=== PATIENT | female | born 1965 | race African-American/Black ===

== ENCOUNTER 2021-05-11 10:00 | Day surgery (SDC) | payer BC ==
[2021-05-11] MEDS ORDERED: Ringers Lactate 1,000 ML IV ONE (10:59)
[2021-05-11] MEDS ORDERED: CEFAZOLIN/SWI 1gm 2 GM/20 ML SYR ONE (10:59)
[2021-05-11] MEDS ORDERED: KETOROLAC 30 MG/ML INJ ONE (12:17)
[2021-05-11] MEDS ORDERED: MIDAZOLAM HCL 2 MG/2 ML INJ ONE (12:17)
[2021-05-11] MEDS ORDERED: propofoL 200 MG/20 ML VIAL IV ONE (12:17)
[2021-05-11] MEDS ORDERED: FENTANYL CITR 100 MCG/2 ML ONE (12:17)
[2021-05-11] MEDS ORDERED: ONDANSETRON 4 MG/2 ML VIAL ONE (12:18)
[2021-05-11] MEDS ORDERED: dexAMETHasone 4 MG/ML VIAL ONE (12:18)
[2021-05-11] MEDS ORDERED: LIDOCAINE 1% MPF 5 ML VIAL ONE (12:18)
[2021-05-11] MEDS ORDERED: BUPIVACAINE 0.25% PF 30 ML VIAL ONE (12:51)
--- NOTE | 2021-05-11 13:32 | P.OP ---
Preoperative diagnosis: LEFT Inguinal Lymphadenopathy Postoperative diagnosis: LEFT Inguinal Lymphadenopathy Primary procedure: Open LEFT inguinal lymph node biopsy Anesthesia: GETA + Local Estimated blood loss: <2cc Specimen: inguinal lymph node Findings: left inguinal lymphadenopathy Complications: None Transferred to: Recovery Room Condition: Good
[2021-05-11] MEDS: HYDROMORPHONE HCL 1 MG/ML INJ ONE ×2 (13:57→14:02)
--- NOTE | 2021-05-11 14:03 | OP ---
Date of Procedure: 05/11/2021 Surgeon: Marlo Seymour MD, Preoperative Diagnosis: Left inguinal lymphadenopathy. Postoperative Diagnosis: Left inguinal lymphadenopathy. Procedure Performed: Open left inguinal lymph node biopsy. Complex multilayer closure of inguinal i ncision. Anesthesia: General endotracheal plus local with 0.25% Marcaine. Estimated Blood Loss: Less than 2 mL. Specimen: Left inguinal lymph node. Cultures sent for both aerobic and anaerobic speciation from le ft inguinal lymph node. Findings: Left inguinal lymphadenopathy, rule out lymphoma. Complications: None. Disposition: The patient was transferred to recovery room in good condition. Procedure In Detail: After informed consent was obtained, the patient was brought to the operating r oom, prepped and draped in the usual sterile fashion after adequate anesthesia was achieved. I palpa marlo an area of the left inguinal region where an obvious large inguinal lymph node was appreciated. I made a small approximately 2 cm incision down to subcutaneous tissue with a 15 blade. I then disse cted down circumferentially to expose the inguinal lymph node. I circumferentially dissected this ly mph node out using blunt dissection. I then applied clips to the lymphatic channels overfeeding this as well as the vascular supply. After this was performed, I used Metzenbaum scissors to ligate the structures and remove the inguinal lymph node, which was sent off for pathologic examination. At thi s point, there was some purulent fluid emanating from the top of the lymph node. I cultured this for both aerobic and anaerobic speciation as well. I then proceeded to irrigate the area and closed the deep plane using single running 3-0 Vicryl suture with good apposition of tissues. I then irrigated once again, closed the deep dermal plane with interrupted 3-0 Vicryl suture, and closed the skin wit h a 4-0 Monocryl in running fashion. Dermabond placed over top. The patient tolerated the procedure well without evidence of complication and transferred to PACU in good condition. All counts were co rrect at the end of the case. PAYAL/JEAN PAUL Voice ID: [id number] Report ID: [id number]
[2021-05-11 14:41] VITALS: TEMP 97.7
[2021-05-11] MEDS ORDERED: ACETAMINOPHEN 500 MG TAB ONE (15:28)
[2021-05-11 15:50] VITALS: BP 114/69; O2SAT 99
== END 2021-05-11 15:50 | disposition home or self-care (01) ==
LOC: OR 10:00
PROVIDERS: ATTEND Surgery
PROC: 07BJ0ZX Excision of Left Inguinal Lymphatic, Open Approach, Diagnostic (ICD-10-PCS; principal; 2021-05-11 12:30)
DX: L04.1 Acute lymphadenitis of trunk (principal); Z20.822 Contact with and (suspected) exposure to COVID-19
CPT/HCPCS: 38531; 87070; 87205; 88312; 88305; 87075; U0003 ×2; J2704; J1100; J2250; J3010; J1170; J0690; J7120; J2405